=== PATIENT | male | born 1965 | race Caucasian/White ===

== ENCOUNTER 2020-07-31 13:08 | Observation (INO) | payer OTHER, SELFPAY ==
[2020-07-31] VITALS (20 sets, daily range): BP systolic 139–176; BP diastolic 77–98; PULSE 65–84; RESP 16–29; TEMP 36.5; O2SAT 96–98; BMI 35.6
--- NOTE | 2020-07-31 13:26 | DI.CT.S_ITS ---
PROCEDURE: CT HEAD/BRAIN WO CON INDICATIONS: dizziness, not TPA candidate TECHNIQUE: Noncontrast 4.5 mm thick angled axial sections acquired from the foramen magnum to the vertex, with coronal and sagittal reformats. For radiation dose reduction, the following was used: automated exposure control, adjustment of mA and/or kV according to patient size. COMPARISON: None. FINDINGS: Image quality: Excellent. CSF spaces: Basal cisterns are patent. No extra-axial fluid collections. Ventricles are normal in size and shape. Brain: No intracranial hemorrhage, mass, or mass effect. Osborn-white matter interface appears preserved. Skull and face: Calvarium and visualized facial bones are intact, without suspicious lesions. Sinuses: Visualized sinuses demonstrate mild mucosal thickening in the maxillary sinuses. IMPRESSION: 1. No acute intracranial abnormality. Dictated by: Damion Sheth M.D. on 07/31/2020 at 12:51 Approved by: Damion Sheth M.D. on 07/31/2020 at 12:52
[2020-07-31 13:40] LABS: Add Manual Diff / Slide Review NO; Basophils Absolute Auto 0 /uL (0-100); Basophils Percent Auto 0.5 % (0-2); Eosinophils Absolute Auto 0 /uL (0-450); Eosinophils Percent Auto 0.3 % (2-4); Hematocrit 47.7 % (41-53); Hemoglobin 16.3 g/dL (13.5-17.5); Lymphocytes Absolute Auto 1100 /uL (1100-4500); Mean Corpuscular HGB Conc 34.1 % (30-36); Mean Corpuscular Hemoglobin 31.1 PG (26-34); Mean Corpuscular Volume 91.1 fL (80-100); Monocytes Absolute Auto 400 /uL (0-900); Monocytes Percent Auto 4.6 % (3-14); Neutrophils Absolute Auto 7200 /uL (1500-7000); Neutrophils Percent Auto 81.6 % (50-75); Platelet Count 159 X10^3/uL (150-400); Red Blood Cell Count 5.23 X10^6/uL (4.5-5.9); Red Cell Distribution Width 13.4 % (11.6-14.8); White Blood Cell Count 8.8 X10^3/uL (4.5-11.0)
--- NOTE | 2020-07-31 13:46 | ED_ITS ---
HPI - Dizziness General Chief Complaint: Dizziness Stated Complaint: sweating,dizziness,nausea Time Seen by Provider: 07/31/20 13:10 Source: patient Mode of arrival: Wheelchair Limitations: no limitations History of Present Illness HPI Narrative: 55-year-old male nonsmoker with no significant medical history is sent here for evaluation of some midline lower back pain which is chronic and an episode of dizziness with associated nausea that happened before arrival. He states that it came on rather suddenly and does not seem to be worsened by change in position. He denies any ongoing symptoms. He denies other neurologic symptoms such as blurred vision, trouble with speech or focal weakness, numbness or tingling. He denies any recent trauma or head injury. He denies any headache. He takes no blood thinners and denies any fever, runny nose, sore throat or cough. He denies chest pain or palpitations. He does state he has had vertigo before and states it was not quite as bad as that. MD complaint: dizziness and lightheadedness Onset (ago): hour(s) Timing: sudden onset Description: lightheadedness History of similar episodes: Yes History of trauma: No Severity: moderate Relieving factors: remaining still Exacerbating factors: movement and position Associated symptoms: nausea Related Data Home Medications Medication Instructions Recorded Confirmed oxybutynin chloride 15 mg PO QAM 07/31/20 07/31/20 Allergies Allergy/AdvReac Type Severity Reaction Status Date / Time Penicillins Allergy Unknown Verified 07/31/20 13:20 Review of Systems Constitutional Constitutional: Denies chills, Denies fatigue, Denies fever(s), Denies frequent falls, Denies lethargy and Denies weakness Eyes Eyes: Denies change in vision, Denies eye discharge, Denies irritation and Denies loss of vision ENT Ears, Nose, Mouth, and Throat: Denies change in voice, Denies dizziness, Denies neck pain, Denies sore throat and Denies throat swelling Cardiovascular Cardiovascular: Denies chest pain, Denies irregular heart rhythm, Denies lightheadedness, Denies palpitations, Denies dyspnea, Denies dyspnea on exertion and Denies orthopnea Respiratory Respiratory: Denies cough, Denies dyspnea, Denies dyspnea on exertion and Denies wheezing Gastrointestinal Gastrointestinal: Denies abdominal pain, Denies change in bowel habits, Denies diarrhea, Denies nausea and Denies vomiting Musculoskeletal Musculoskeletal: Denies neck pain and Denies numbness Integumentary/Breasts Skin/Breast: Denies pruritus, Denies erythema, Denies rash and Denies wounds Neurologic Neurologic: Denies behavioral changes, Denies confusion, Denies dizziness, D enies frequent falls, Denies loss of vision, Denies numbness and Denies weakness Psychiatric Psychiatric: Denies anxiety, Denies behavioral changes, Denies confusion, Denies depression, Denies homicidal ideation and Denies suicidal ideation Endocrine Endocrine: Denies fatigue, Denies flushing and Denies palpitations Hematologic/Lymphatic Hematologic/Lymphatic: Denies easy bruising Allergic/Immunologic Allergic/Immunologic: Denies urticaria, Denies throat swelling and Denies wheezing Patient History Social History Smoking Status: Never smoker Smoking Status: Never smoker alcohol intake frequency: 0-2 drinks per day Substance Use Type: does not use Exam Narrative Exam Narrative: GENERAL: [55] year old patient appears stated age. Well- nourished, well-developed patient, in mild distress. HEAD: Atraumatic. Normocephalic. EYES: Pupils equal round and reactive. Extraocular motions intact. No scleral icterus. No injection or drainage. ENT: Nose without bleeding, purulent drainage. Throat without erythema, tonsillar hypertrophy or exudate. Airway patent. NECK: Trachea midline. Non tender CARDIOVASCULAR: Regular rate and rhythm without murmurs, gallops, or rubs. RESPIRATORY: Clear to auscultation. Breath sounds equal bilaterally. No wheezes, rales, or rhonchi. GASTROINTESTINAL: Abdomen soft, non-tender, nondistended. EXTREMITIES: No edema or joint tenderness. BACK: Nontender without deformity or crepitance. No flank tenderness. NEURO: AOx3. SKIN: No rash or erythema of visible areas Initial Vital Signs Initial Vital Signs: Vital Signs Temperature 97.7 F 07/31/20 13:17 Pulse Rate 68 07/31/20 13:17 Respiratory Rate 16 07/31/20 13:17 Blood Pressure 165/98 H 07/31/20 13:17 Scores HEART Score Heart Score history: Moderately Suspicious Heart Score EKG: Normal Heart Score Age: 45-64 years old Heart Score risk factors: > 3 risk factors or hx of atherosclerotic disease Heart Score troponin: < or = to normal limit Heart Score Total: 4 Course Course Course Narrative: orthostatics are unremarkable, no change and no dizziness. When patient walked to bathroom he felt this lightheadedness and got nauseated again Repeat EKG unremarkable. Second troponin negative. Given lack of positional quality and symptoms relation to exertion I called cardiology to discuss recommendations. He agrees that classic findings are not present but exertional tendency warrants an echo. Orders Ordered: ED Orders 07/31/20 13:26 CT head/brain wo con Stat 07/31/20 13:30 Complete Blood Count AUTO DIFF Stat Comprehensive Metabolic Panel Stat D Dimer Stat Magnesium Stat NT-proBNP (BNP-Adult 18+) Stat Troponin & CK Cardiac Panel Stat 07/31/20 15:50 Trop I [Troponin I] Stat 07/31/20 18:07 COVID19 -ED/INPAT/OR/L&D Stat Discontinued Medications Sodium Chloride (Normal Saline 0.9%) 1,000 mls @ 1,000 mls/hr IV BOLUS ONE Stop: 07/31/20 14:25 Last Infusion: 07/31/20 15:32 Dose: 0 mls/hr Documented by: Admin: 07/31/20 14:05 Dose: 1,000 mls/hr Documented by: DARREL Vital Signs Vital signs: Vital Signs - 8 hr 07/31/20 13:17 07/31/20 13:19 07/31/20 13:30 Temperature 97.7 F Pulse Rate 68 72 66 Pulse Rate [Orthostatic Lying] Pulse Rate [Orthostatic Sitting] Pulse Rate [Orthostatic Standing] Respiratory Rate 16 27 H 23 Blood Pressure 165/98 H Blood Pressure [Orthostatic Lying] Blood Pressure [Orthostatic Sitting] Blood Pressure [Orthostatic Standing] Pulse Oximetry 98 98 07/31/20 14:00 07/31/20 14:30 07/31/20 15:00 Temperature Pulse Rate 68 73 72 Pulse Rate [Orthostatic Lying] Pulse Rate [Orthostatic Sitting] Pulse Rate [Orthostatic Standing] Respiratory Rate 17 23 23 Blood Pressure Blood Pressure [Orthostatic Lying] Blood Pressure [Orthostatic Sitting] Blood Pressure [Orthostatic Standing] Pulse Oximetry 97 07/31/20 15:32 07/31/20 15:34 07/31/20 16:00 Temperature Pulse Rate 84 66 69 Pulse Rate [Orthostatic Lying] Pulse Rate [Orthostatic Sitting] Pulse Rate [Orthostatic Standing] Respiratory Rate 23 18 Blood Pressure 176/88 H 147/82 H Blood Pressure [Orthostatic Lying] Blood Pressure [Orthostatic Sitting] Blood Pressure [Orthostatic Standing] Pulse Oximetry 97 97 07/31/20 16:30 07/31/20 17:00 07/31/20 17:44 Temperature Pulse Rate 69 66 Pulse Rate [Orthostatic Lying] 66 Pulse Rate [Orthostatic Sitting] 73 Pulse Rate [Orthostatic Standing] 73 Respiratory Rate 18 23 Blood Pressure 154/81 H 151/87 H Blood Pressure [Orthostatic Lying] 155/77 H Blood Pressure [Orthostatic Sitting] 155/87 H Blood Pressure [Orthostatic Standing] 156/90 H Pulse Oximetry 97 97 MDM - Dizziness Lab Data Result diagrams: 07/31/20 13:30 07/31/20 13:30 Labs: Lab Results 07/31/20 07/31/20 07/31/20 Range/Units 13:30 13:30 13:30 WBC 8.8 (4.5-11.0) X10^3/uL RBC 5.23 (4.5-5.9) X10^6/uL Hgb 16.3 (13.5-17.5) g/dL Hct 47.7 (41-53) % MCV 91.1 (80-100) fL MCH 31.1 (26-34) PG MCHC 34.1 (30-36) % RDW 13.4 (11.6-14.8) % Plt Count 159 (150-400) X10^3/uL Neut % (Auto) 81.6 H (50-75) % Lymph % (Auto) 13.0 L (25-40) % [place] % (Auto) 4.6 (3-14) % Eos % (Auto) 0.3 L (2-4) % Baso % (Auto) 0.5 (0-2) % Neut # (Auto) 7200 H (4532-0759) /uL Lymph # (Auto) 1100 (3078-3947) /uL [place] # (Auto) 400 (0-900) /uL Eos # (Auto) 0 (0-450) /uL Baso # (Auto) 0 (0-100) /uL D-Dimer < 200 (<230) ng/mL Sodium 140 (137-145) mmol/L Potassium 3.8 (3.4-5.1) mmol/L Chloride 104 (98-107) mmol/L Carbon Dioxide 28 (22-32) mmol/L BUN 15 (9-20) mg/dL Creatinine 0.78 (0.66-1.25) mg/dL Estimated GFR > 60.0 (>60) mL/min BUN/Creatinine Ratio 19.2 (6-22) Glucose 120 H (70-100) mg/dL Calcium 9.1 (8.4-10.2) mg/dL Magnesium 1.8 (1.6-2.3) mg/dL Total Bilirubin 0.6 (0.2-1.3) mg/dL AST 42 (17-59) IU/L ALT 72 H (<50) IU/L Alkaline Phosphatase 58 (38-126) U/L Total Creatine Kinase 83 (55-170) U/L CK-MB (CK-2) TNP CK-MB (CK-2) Rel Index TNP Troponin I < 0.012 (0.01-0.034) ng/mL NT-Pro-B Natriuret Pep 33 (<125) pg/mL Total Protein 7.7 (6.3-8.2) g/dL Albumin 4.5 (3.5-5.0) g/dL Globulin 3.2 (1.7-4.1) g/dL Albumin/Globulin Ratio 1.4 (1.0-2.8) 10/10/20 Range/Units 15:50 WBC (4.5-11.0) X10^3/uL RBC (4.5-5.9) X10^6/uL Hgb (13.5-17.5) g/dL Hct (41-53) % MCV (80-100) fL MCH (26-34) PG MCHC (30-36) % RDW (11.6-14.8) % Plt Count (150-400) X10^3/uL Neut % (Auto) (50-75) % Lymph % (Auto) (25-40) % [place] % (Auto) (3-14) % Eos % (Auto) (2-4) % Baso % (Auto) (0-2) % Neut # (Auto) (6230-7405) /uL Lymph # (Auto) (0416-5425) /uL [place] # (Auto) (0-900) /uL Eos # (Auto) (0-450) /uL Baso # (Auto) (0-100) /uL D-Dimer (<230) ng/mL Sodium (137-145) mmol/L Potassium (3.4-5.1) mmol/L Chloride (98-107) mmol/L Carbon Dioxide (22-32) mmol/L BUN (9-20) mg/dL Creatinine (0.66-1.25) mg/dL Estimated GFR (>60) mL/min BUN/Creatinine Ratio (6-22) Glucose (70-100) mg/dL Calcium (8.4-10.2) mg/dL Magnesium (1.6-2.3) mg/dL Total Bilirubin (0.2-1.3) mg/dL AST (17-59) IU/L ALT (<50) IU/L Alkaline Phosphatase (38-126) U/L Total Creatine Kinase (55-170) U/L CK-MB (CK-2) CK-MB (CK-2) Rel Index Troponin I < 0.012 (0.01-0.034) ng/mL NT-Pro-B Natriuret Pep (<125) pg/mL Total Protein (6.3-8.2) g/dL Albumin (3.5-5.0) g/dL Globulin (1.7-4.1) g/dL Albumin/Globulin Ratio (1.0-2.8) Urine Dip Bedside Urine Glucose Negative Bedside Urine Bilirubin - Negative Bedside Urine Ketone - Negative Urine Specific [place] 1.010 Bedside Urine Occult Blood - Negative Bedside Urine pH 7 Bedside Urine Protein - Negative Bedside Urine Urobilinogen - Negative Bedside Urine Nitrite - Negative Bedside Urine Leukocytes - Negative Esterase Discharge Plan Departure Patient Disposition: Home Prescriptions: No Action oxybutynin chloride 15 mg tablet extended release 24hr 15 mg PO QAM RF: 0
[2020-07-31 13:52] LABS: Alanine Aminotransferase 72 IU/L (<50); Albumin 4.5 g/dL (3.5-5.0); Albumin Globulin Ratio 1.4 (1.0-2.8); Alkaline Phosphatase 58 U/L (38-126); Aspartate Aminotransferase 42 IU/L (17-59); BUN Creatinine Ratio 19.2 (6-22); Bilirubin Total 0.6 mg/dL (0.2-1.3); Blood Urea Nitrogen 15 mg/dL (9-20); Calcium 9.1 mg/dL (8.4-10.2); Carbon Dioxide 28 mmol/L (22-32); Chloride 104 mmol/L (98-107); Creatine Kinase 83 U/L (55-170); Estimated Glomerular Filt Rate > 60.0 mL/min (>60); Globulin 3.2 g/dL (1.7-4.1); Glucose 120 mg/dL (70-100); HEMOLYSIS 27 (0-50); Magnesium 1.8 mg/dL (1.6-2.3); Potassium 3.8 mmol/L (3.4-5.1); Sodium 140 mmol/L (137-145); Total Protein 7.7 g/dL (6.3-8.2)
[2020-07-31 13:55] LABS: D Dimer < 200 ng/mL (<230)
[2020-07-31 14:04] LABS: NT-proBNP (BNP-Adult 18+) 33 pg/mL (<125); Troponin I < 0.012 ng/mL (0.01-0.034)
[2020-07-31] MEDS: SODIUM CHLORIDE 0.9% 1,000 ML 1000 ML IV (14:05)
[2020-07-31 16:20] LABS: Troponin I < 0.012 ng/mL (0.01-0.034)
[2020-07-31 18:26] LABS: COVID19 -Nasal RAPID Negative (Negative)
[2020-08-01 00:22] VITALS: BP 150/84; PULSE 70; RESP 20; TEMP 36.7; O2SAT 96
--- NOTE | 2020-08-01 04:02 | P.HP_ITS ---
History of Present Illness History of Present Illness Date Patient Seen: 07/31/20 Time Patient Seen: 22:30 Chief complaint: sweating,dizziness,nausea Narrative: Mr. Sumit Valles is a 55-year-old male with a past medical history significant for BPH, obstructive sleep apnea on CPAP who was seen in the walk-in clinic and sent to the ER for further evaluation of midline lower back pain, dizziness and ataxia. 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 He self-treated with Aleve yesterday with improvement in symptoms describing pain today a 10/31. While further lived loading the ship with revisions today he developed dizziness that he describes as the boat rocking at approximately 9:00 a.m. this morning. He has had previous vertigo describes as as a very different sensation. He describes associated ataxia and reports that his legs were 1 weak likely would feel after a long run. He additionally described blurry vision mild nausea and difficulty thinking clearly. His symptoms all but resolved by the time he presented to the hospital for evaluation. He denies any complaints of recent i llness with no fevers or chills, nasal congestion or sore throat. He denies chest pain or palpitations, shortness of breath cough or wheezing. He has sleep apnea and uses CPAP nightly. He has had no abdominal pain and denies nausea or vomiting and has had no changes in appetite and reports drinking adequate fluids. He denies constipation or diarrhea does have enlarged prostate for which he takes oxybutynin. He previously had frequent nocturia that has resolved with use of CPAP. Patient denies radicular pain weakness or numbness or tingling in his legs. He is typically fully independent in ADLs uses no assistive devices. Upon arrival to the ER he is afebrile with temperature 97.7?, heart rate 68, blood pressure 165/98, respirations 16 and saturating 98% on room air. A CT of the head finds no acute intracranial pathology. On laboratory analysis has white count of 8.8, hemoglobin 16.3, hematocrit of 47.7 platelets 159. His electrolytes within normal ranges and has a BUN of 15 and creatinine 0.78. His magnesium is 1.8 his liver functions are all within normal range. He has a D- dimer of less than 200, total CK of 83, troponin of 0.012 x 2 and a proBNP of 33. His 12 lead EA she shows a sinus rhythm with a ventricular rate of 66 without ectopy, ST or T-wave changes. In the ER the patient received 1 L of normal saline. The patient was ambulated to the bathroom or upon his symptoms reoccurred. Dr. Hickman cardiology was consulted. He is admitted to the medicine service persistent weakness and dizziness. Patient History Medical History (Updated 08/01/20 @ 04:18 by KIRSTY Thompson) BPH (benign prostatic hyperplasia) (Acute) Obesity (BMI 30-39.9) (Acute) Obstructive sleep apnea on CPAP (Acute) Surgical History (Updated 08/01/20 @ 04:19 by KIRSTY Thompson) History of appendectomy (Acute) Family & Social History Family History (Updated 08/01/20 @ 04:20 by KIRSTY Thompson) Father Brain tumor Mother Post-polio syndrome Brother Pituitary tumor Brother No significant medical problems Social History: household members significant other Prior Living Arrangements House Safety & Behavioral: Feels Safe in Current Yes Environment Been Physically Hurt or No Threatened By a Person Suicidal Ideation Description None Suicide Plan Description No Plan Tobacco & Substance use: Smoking Status Never smoker alcohol intake current alcohol intake frequency 0-2 drinks per day Substance Use Type does not use Meds Home Medications and Allergies Home Medications Medication Instructions Recorded Confirmed Type oxybutynin chloride 15 mg PO QAM 07/31/20 07/31/20 History Allergies Allergy/AdvReac Type Severity Reaction Status Date / Time Penicillins Allergy Unknown Verified 07/31/20 13:20 garlic Allergy Diarrhea Verified 07/31/20 20:48 Review of Systems Review of Systems ROS: Yes All systems reviewed with the patient and are negative except as otherwise documented Exam Vital Signs (past 8 hours): - 07/31/20 21:22 08/01/20 00:22 Temperature 98.1 F Pulse Rate 67 70 Respiratory Rate 18 20 Blood Pressure 150/84 H Pulse Oximetry 98 96 Oxygen Delivery Method Room Air Oxygen Flow Rate 0 Narrative Exam Narrative: GENERAL APPEARANCE: well developed, obese male with BMI 35.6, resting comfortably in bed in no acute distress. HEENT: Normocephalic, PERRLA, conjunctiva clear and anicteric, EOMs intact without nystagmus, no sinus tenderness to percussion, no rhinorrhea, mucous membranes are moist and pink without lesions or exudate. NECK/THYROID: neck supple, nontender, no JVD, no carotid bruit, no thyromegaly, trachea midline. LYMPH NODES: no cervical or supraclavicular lymphadenopathy. SKIN: [place], warm and dry, no visible lesions, rashes. HEART: regular rate and rhythm, S1-S2, no murmur, no rubs or gallops, brisk capillary refill, no edema LUNGS: clear to auscultation bilaterally, no coarseness crackles or wheezing, no cough present CHEST: Symmetrical movement, no accessory muscle use, good tidal volume. ABDOMEN: Soft, round, dull to percussion, no distention, no abdominal tenderness, no guarding or peritoneal signs, no organomegaly, no flank or suprapubic tenderness, active bowel tones. BACK: Normal curvature, nontender to palpation, no CVA tenderness on percussion EXTREMITIES: moves all extremities, strength is 5/5 and symmetrical, no def ormities or joint effusions. NEUROLOGIC: AAO x4, cranial nerves II-XII grossly intact, sensation intact to light touch, hearing grossly normal to speech. PSYCH: Good judgment, linear thought process, cooperative, appropriate with stable behavior Objective Labs Result Diagrams: 07/31/20 13:30 07/31/20 13:30 Labs: Laboratory Results - last 24 hr 07/31/20 07/31/20 07/31/20 13:30 13:30 13:30 WBC 8.8 RBC 5.23 Hgb 16.3 Hct 47.7 MCV 91.1 MCH 31.1 MCHC 34.1 RDW 13.4 Plt Count 159 Neut % (Auto) 81.6 H Lymph % (Auto) 13.0 L [place] % (Auto) 4.6 Eos % (Auto) 0.3 L Baso % (Auto) 0.5 Neut # (Auto) 7200 H Lymph # (Auto) 1100 [place] # (Auto) 400 Eos # (Auto) 0 Baso # (Auto) 0 D-Dimer < 200 Sodium 140 Potassium 3.8 Chloride 104 Carbon Dioxide 28 BUN 15 Creatinine 0.78 Estimated GFR > 60.0 BUN/Creatinine Ratio 19.2 Glucose 120 H Calcium 9.1 Magnesium 1.8 Total Bilirubin 0.6 AST 42 ALT 72 H Alkaline Phosphatase 58 Total Creatine Kinase 83 CK-MB (CK-2) TNP CK-MB (CK-2) Rel Index TNP Troponin I < 0.012 NT-Pro-B Natriuret Pep 33 Total Protein 7.7 Albumin 4.5 Globulin 3.2 Albumin/Globulin Ratio 1.4 COVID-19 PCR 07/31/20 07/31/20 15:50 18:00 WBC RBC Hgb Hct MCV MCH MCHC RDW Plt Count Neut % (Auto) Lymph % (Auto) [place] % (Auto) Eos % (Auto) Baso % (Auto) Neut # (Auto) Lymph # (Auto) [place] # (Auto) Eos # (Auto) Baso # (Auto) D-Dimer Sodium Potassium Chloride Carbon Dioxide BUN Creatinine Estimated GFR BUN/Creatinine Ratio Glucose Calcium Magnesium Total Bilirubin AST ALT Alkaline Phosphatase Total Creatine Kinase CK-MB (CK-2) CK-MB (CK-2) Rel Index Troponin I < 0.012 NT-Pro-B Natriuret Pep Total Protein Albumin Globulin Albumin/Globulin Ratio COVID-19 PCR Negative Assessment & Plan Assessment & Plan narrative: This is a 55-year-old male patient who developed mid back pain 1 day ago self-treated with Aleve with improvement and 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 1. Dizziness, acute, present on admission, active -patient with history of vertigo describes this is very different with associated symptoms of mild nausea extremity weakness/fatigue, no complaints of headache, chest pain or shortness of breath, no recent illness. -patient had troponins that were negative x2 an EKG shows a normal sinus rhythm without ST T wave changes and no ectopy. Head CT finds no acute intracranial pathology, no evidence of infection or evidence of dehydration. -in the ER the patient received 1 L of fluids, negative orthostatics, patient is saline lock. -patient is taking oral fluids without nausea, ordered heart healthy diet. -ordered echocardiogram in the morning. -ordered MR stroke protocol in the morning 2. BPH without lower urinary tract obstruction, chronic, stable -Continue patient's home regimen of oxybutynin 15 mg daily 3. Obstructive sleep apnea -respiratory therapy to consult patient may use own CPAP machine. VTE prophylaxis: Bilateral SCDs, chemical prophylaxis not indicated IV fluid: Saline lock Diet: Heart healthy Code status: Full code, patient has no surrogate decision maker but states he does not want to have long-term life support. The patient is admitted to the hospital for further monitoring and evaluation due to the severity of symptoms and the risk for potential complications and adverse events. The patient is admitted as observation with expected length of stay to be less than 2 midnights. COVID-19 COVID-19 status: Negative Result date/Date tested (Pos, Neg/Pending): 07/31/20 Scores GCS [place] coma scale eye opening: Spontaneous [place] coma scale verbal response: Orientated [place] coma scale motor response: Obey commands [place] coma scale total score: 15
[2020-08-01 05:35] VITALS: BP 121/72; BP 137/79; BP 145/90; PULSE 70; PULSE 71; PULSE 80
[2020-08-01 05:40] LABS: BUN Creatinine Ratio 19.3 (6-22); Blood Urea Nitrogen 17 mg/dL (9-20); Carbon Dioxide 30 mmol/L (22-32); Chloride 105 mmol/L (98-107); Estimated Glomerular Filt Rate > 60.0 mL/min (>60); Glucose 109 mg/dL (70-100); HEMOLYSIS 16 (0-50); Potassium 3.7 mmol/L (3.4-5.1); Sodium 138 mmol/L (137-145)
[2020-08-01 08:51] VITALS: PULSE 68; RESP 18; O2SAT 98
[2020-08-01 09:37] VITALS: BP 131/76; BP 137/79; BP 143/78; PULSE 73; PULSE 76; PULSE 77; PULSE 84; RESP 15; TEMP 36.8; O2SAT 95
[2020-08-01] MEDS: INFLUENZA VACCINE 0.5 ML SYRINGE IM (10:18)
[2020-08-01] MEDS: OXYBUTYNIN 5 MG ER TAB 15 MG PO (10:18)
[2020-08-01] MEDS: SODIUM CHLORIDE 0.9% FLUSH 10 ML IV (10:20)
--- NOTE | 2020-08-01 11:30 | P.DS_ITS ---
History of Present Illness History of Present Illness Date Patient Seen: 08/01/20 Chief complaint: sweating,dizziness,nausea Narrative: Mr. Sumit Valles is a 55-year-old male with a past medical history significant for BPH, obstructive sleep apnea on CPAP who was seen in the walk-in clinic and sent to the ER for further evaluation of midline lower back pain, dizziness and ataxia. 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 He self-treated with Aleve yesterday with improvement in symptoms describing pain today a 10/31. While further lived loading the ship with revisions today he developed dizziness that he describes as the boat rocking at approximately 9:00 a.m. this morning. He has had previous vertigo describes as as a very different sensation. He describes associated ataxia and reports that his legs were 1 weak likely would feel after a long run. He additionally described blurry vision mild nausea and difficulty thinking clearly. His symptoms all but resolved by the time he presented to the hospital for evaluation. He denies any complaints of recent illness with no fevers or chills, nasal congestion or sore throat. He denies chest pain or palpitations, shortness of breath cough or wheezing. He has sleep apnea and uses CPAP nightly. He has had no abdominal pain and denies nausea or vomiting and has had no changes in appetite and reports drinking adequate fluids. He denies constipation or diarrhea does have enlarged prostate for which he takes oxybutynin. He previously had frequent nocturia that has resolved with use of CPAP. Patient denies radicular pain weakness or numbness or tingling in his legs. He is typically fully independent in ADLs uses no assistive devices. Upon arrival to the ER he is afebrile with temperature 97.7?, heart rate 68, blood pressure 165/98, respirations 16 and saturating 98% on room air. A CT of the head finds no acute intracranial pathology. On laboratory analysis has white count of 8.8, hemoglobin 16.3, hematocrit of 47.7 platelets 159. His elect rolytes within normal ranges and has a BUN of 15 and creatinine 0.78. His magnesium is 1.8 his liver functions are all within normal range. He has a D- dimer of less than 200, total CK of 83, troponin of 0.012 x 2 and a proBNP of 33. His 12 lead EA she shows a sinus rhythm with a ventricular rate of 66 without ectopy, ST or T-wave changes. In the ER the patient received 1 L of normal saline. The patient was ambulated to the bathroom or upon his symptoms reoccurred. Dr. Hickman cardiology was consulted. He is admitted to the medicine service persistent weakness and dizziness. Discharge Providers Provider Date of admission: 07/31/20 18:28 Discharge Date: 08/01/20 Consults: 07/31/20 20:06 Consult to Discharge Planning Routine Comment: Consult to Physical Therapy Evaluate & Treat Comment: Vertigo, exertional weakness Physician Instructions: Evaluate and Treat 08/01/20 04:32 Consult to Respiratory Therapy Evaluate & Treat Comment: CPAP Physician Instructions: Evaluate and treat Discharge provider: Sommer Jones MD Summary Hospital Course Discharge Diagnosis: 1. Vertigo 2. Obstructive sleep apnea 3. Obesity 4. Back pain Hospital Course: Patient was admitted to the hospital for evaluation of dizziness, ataxia and back pain. The patient underwent orthostatic vital signs which show no evidence of orthostatic changes. The patient reports his vertigo improved. He had no back pain. He was evaluated by physical therapy and had no evidence of ataxia. The patient's head CT was negative. He had no chest pain. He had no shortness of breath. While he reports this episode of vertigo seems different from prior his main complaint was dizziness which has completely resolved. Patient was deemed appropriate for discharge and arrangements were made for him to be discharged home. Status at Discharge Cognitive/behavioral status at discharge: oriented Functional status at discharge: independent ambulation Overall status at discharge: patient is back to baseline Time Spent with Patient Time spent: Less than 30 minutes Exam Vital Signs (past 8 hours): - 08/01/20 05:35 08/01/20 08:51 08/01/20 09:37 Temperature 98.3 F Pulse Rate 68 76 Pulse Rate [Orthostatic Lying] 71 77 Pulse Rate [Orthostatic Sitting] 70 73 Pulse Rate [Orthostatic Standing] 80 84 Respiratory Rate 18 15 Blood Pressure 143/78 H Blood Pressure [Orthostatic Lying] 145/90 H 143/78 H Blood Pressure [Orthostatic Sitting] 137/79 137/79 Blood Pressure [Orthostatic Standing] 121/72 131/76 Pulse Oximetry 98 95 Oxygen Delivery Method Room Air Oxygen Flow Rate 0 Narrative Exam Narrative: Pleasant male in no acute distress Lungs: Clear to auscultation Cardiac exam: Regular rate and rhythm normal S1-S2 Abdomen: Soft nontender nondistended Extremities: No edema Objective Labs Result Diagrams: 07/31/20 13:30 08/01/20 04:50 Labs: Laboratory Results - last 24 hr 07/31/20 07/31/20 07/31/20 13:30 13:30 13:30 WBC 8.8 RBC 5.23 Hgb 16.3 Hct 47.7 MCV 91.1 MCH 31.1 MCHC 34.1 RDW 13.4 Plt Count 159 Neut % (Auto) 81.6 H Lymph % (Auto) 13.0 L [place] % (Auto) 4.6 Eos % (Auto) 0.3 L Baso % (Auto) 0.5 Neut # (Auto) 7200 H Lymph # (Auto) 1100 [place] # (Auto) 400 Eos # (Auto) 0 Baso # (Auto) 0 D-Dimer < 200 Sodium 140 Potassium 3.8 Chloride 104 Carbon Dioxide 28 BUN 15 Creatinine 0.78 Estimated GFR > 60.0 BUN/Creatinine Ratio 19.2 Glucose 120 H Calcium 9.1 Magnesium 1.8 Total Bilirubin 0.6 AST 42 ALT 72 H Alkaline Phosphatase 58 Total Creatine Kinase 83 CK-MB (CK-2) TNP CK-MB (CK-2) Rel Index TNP Troponin I < 0.012 NT-Pro-B Natriuret Pep 33 Total Protein 7.7 Albumin 4.5 Globulin 3.2 Albumin/Globulin Ratio 1.4 COVID-19 PCR 07/31/20 07/31/20 08/01/20 15:50 18:00 04:50 WBC RBC Hgb Hct MCV MCH MCHC RDW Plt Count Neut % (Auto) Lymph % (Auto) [place] % (Auto) Eos % (Auto) Baso % (Auto) Neut # (Auto) Lymph # (Auto) [place] # (Auto) Eos # (Auto) Baso # (Auto) D-Dimer Sodium 138 Potassium 3.7 Chloride 105 Carbon Dioxide 30 BUN 17 Creatinine 0.88 Estimated GFR > 60.0 BUN/Creatinine Ratio 19.3 Glucose 109 H Calcium 9.0 Magnesium Total Bilirubin AST ALT Alkaline Phosphatase Total Creatine Kinase CK-MB (CK-2) CK-MB (CK-2) Rel Index Troponin I < 0.012 NT-Pro-B Natriuret Pep Total Protein Albumin Globulin Albumin/Globulin Ratio COVID-19 PCR Negative Discharge Assessment & Plan Assessment and Plan Assessment: 1. Vertigo, resolved 2. Obstructive sleep apnea 3. Obesity Plan of Treatment: Discharge Meclizine as needed for vertigo Discharge Plan Discharge Plan Discharge Problem: Atypical chest pain Patient Disposition: Home Discharge orders & Medications Prescriptions: New meclizine 25 mg tablet,chewable 25 mg PO TID PRN (Reason: dizziness) Qty: 30 RF: 0 Continued oxybutynin chloride 15 mg tablet extended release 24hr 15 mg PO QAM RF: 0 Diet/Activity/Treatments Diet: Low-sodium Activity: as tolerated Discharge Data Attending Provider: Sommer Jones Admit Date/Time: 07/31/20 18:28
--- NOTE | 2020-08-01 11:40 | PT.IIE ---
Surgical History (Last Updated 08/01/20 @ 04:19 by KIRSTY Thompson) History of appendectomy (Acute) Medical History (Last Updated 08/01/20 @ 04:18 by KIRSTY Thompson) BPH (benign prostatic hyperplasia) (Acute) Obesity (BMI 30-39.9) (Acute) Obstructive sleep apnea on CPAP (Acute) Physical Therapy Inpatient Evaluation/Re-Eval M1 PT/OT-IP Prior Functional Status Start: 08/01/20 10:08 Freq: NEEDED Status: Active Protocol: Document 08/01/20 11:35 AW (Rec: 08/01/20 12:17 AW [id number]) Medical Review Prior Functional Status Medical History Reviewed Yes: PMH includes BPPV, BPH, TENZIN Communication WNL. No known deficits. Mobility and Gait Pt is right handed. 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 M2 PT-IP Current Condition Start: 08/01/20 10:08 Freq: NEEDED Status: Active Protocol: Document 08/01/20 11:35 AW (Rec: 08/01/20 12:17 AW [id number]) Physical Therapy Current Condition Current Condition Evaluation Date 08/01/20 Treatment Diagnosis possible TIA, difficulty in walking Onset Date 07/30/20 M3 PT-IP Subjective Start: 08/01/20 10:08 Freq: NEEDED Status: Active Protocol: Document 08/01/20 11:35 AW (Rec: 08/01/20 12:17 AW [id number]) Subjective Physical Therapy Visit Type Type Initial Evaluation Visit Start Time 11:11 Visit Stop Time 11:33 Total Visit Minutes 22 Number of MODERATE NEEDS TEACHER Visits 0 Physical Therapy Visit Comments Patient Comments Pt is willing to participate with PT Patient Goals Return to work Therapy Pain Assessment Pain When Pain Assessed During Mobility Pain Present Pain Present Pain Reported Location Back Scale Used not quantified Pain Management Techniques Distraction,Re-positioning M4 PT-IP Mobility and Gait Start: 08/01/20 10:08 Freq: NEEDED Status: Active Protocol: Document 08/01/20 11:35 AW (Rec: 08/01/20 12:17 AW [id number]) PT-Bed Mobility Assessment Supine to Sit Supine to Sit Independent Scooting Scooting to Edge of Bed Independent PT-Transfer Assessment Sit to and From Stand Sit to and from Stand Independent Equipment Transfer Assistive Device None,Gait Belt Orthotic/Prosthetic Devices or Brace: No Transfers Transfer Destination Chair Transfer Technique pt ambulated IND Transfer Ability Level of Assist Independent Comments Mobility Comments Pt was lying in the bed when PT arrived. He completed all bed mobility, transfers, and gait without assist and denied dizziness throughout the evaluation. He completed 4- item DGI in the halls with a score of 12/12. Pt returned to the room and transferred to the chair where he was left with call light and all needs within reach. Gait Assessment Gait Gait Assistance Required: Independent Distance (Feet) 300 Assistive Devices Assistive Device None,Gait Belt Orthotic/Prosthetic Devices or Brace: No Gait Deviations General Gait Pattern Within Normal Limits,Wide Based Gait Comments Gait Comments See mobility comments for details. Stair Climbing Assessment Evaluation Level of Assist On Stairs Independent Devices Stair Climbing Assistive Devices None Technique/Endurance Stair Climbing Direction Ascend and Descend Stair Climbing Technique Step Over Step Number of Steps Climbed 3 Query Text: Stair Climbing Set # Repetitions (reps) 2 PT-Balance Assessment Sitting Balance and Reactions Static Sitting Balance Ability Normal Dynamic Sitting Balance Ability Normal Standing Balance and Reactions Static Standing Balance Ability Normal Dynamic Standing Balance Ability Normal Balance Tests Romberg WNL EO and EC Tandem Standing Normal Functional Assessments Functional Tests Dynamic Gait Index 4-item DGI: /12 M5 PT-IP Objective Assessments Start: 08/01/20 10:08 Freq: NEEDED Status: Active Protocol: Document 08/01/20 11:35 AW (Rec: 08/01/20 12:17 AW [id number]) Orientation Orientation/Cognition Level of Alertness Alert Orientation Name,Day of Week,Place, Situation Language Function Ability No Deficits Noted Safety Awareness Understands Safety Issues Memory Description No Deficits Noted Gross Range of Motion Upper Extremity ROM Assessment Within Functional Limits Lower Extremity ROM Assessment Within Functional Limits Strength Upper Extremity Strength Assessment Within Functional Limits Lower Extremity Strength Assessment Within Functional Limits Comments Strength Comments No unilateral deficits noted on exam. Coordination Assessment Gross Coordination Gross Coordination WNL Assessment Finger to Nose Test Normal Performance Foot Tapping Test Normal Performance Sensation Assessment Sensation Gross Sensation WNL Comments Sensation Comments Pt denied any sensation disturbance. Muscle Tone Muscle Tone WNL Yes Comments Muscle Tone Comments Negative ankle clonus bilaterally Other Assessments Other Other Assessments No resting or gaze-evoked nystagmus on exam. Occulomotor exam grossly normal. VOR intact on head thrust testing. M6 PT-IP Treatment Start: 08/01/20 10:08 Freq: NEEDED Status: Active Protocol: Document 08/01/20 11:35 AW (Rec: 08/01/20 12:17 AW [id number]) Physical Therapy Treatment Education Education Provided Safety Other Treatments Other Treatment Performed Reviewed signs and symptoms of stroke with pt able to teach back. M7 PT-IP Assessment and Plan Start: 08/01/20 10:08 Freq: NEEDED Status: Active Protocol: Document 08/01/20 11:35 AW (Rec: 08/01/20 12:17 AW [id number]) PT Summary Assessment and Plan Potential Status of Condition at Evaluation Stable Summary Impairments Pain Assessment Summary Sumit is a 55 yo man seen for PT evaluation after being admitted with midline/right- sided low back pain, dizziness lasting <2 hours, blurred vision, and nausea. Pt has history of BPPV and clearly states these symptoms were distinct from an episode of BPPV. 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 On exam, pt's symptoms had resolved other than mild low back pain and he required no assist for all mobility. He scored 12/12 on 4-item DGI and therefore requires no further balance assessment. PT identifies no acute or subacute needs. Pt is safe to discharge once medically cleared. Frequency of Treatment Frequency Of Treatment Discharge Recommendations To Nursing Amount of Assist Needed Independent Discharge Recommendations PT Discharge Recommendations Home Transportation Needs at Discharge Private Vehicle
--- NOTE | 2020-08-01 16:01 | PC.NURSE ---
Discharge: Feels ready to d/c home. Reviewed d/c instructions. Employer called numerous times today. Spoke with noc nurse Jenni RN, Daya [employer] x2, this radio script writer x1, and Dr. Jones x2. Information exchanged with pt written permission. Pt questions answered. Pt d/c home via auto.
== END 2020-08-01 13:45 | disposition home or self-care (01) ==
LOC: ED 18:25 → AC 18:29
PROVIDERS: Nurse Practitioner Adult Health; Admitting Provider Internal Medicine; Emergency Provider Emergency Medicine; Referring Provider Emergency Medicine; Visit Provider Internal Medicine
DX: M54.5 Low back pain (principal); R42 Dizziness and giddiness; R11.0 Nausea; E66.9 Obesity, unspecified; G47.33 Obstructive sleep apnea (adult) (pediatric); N40.0 Benign prostatic hyperplasia without lower urinary tract symptoms; Z68.35 Body mass index [BMI] 35.0-35.9, adult; Z11.59 Encounter for screening for other viral diseases
CPT/HCPCS: 36415; 70450; 80048; 80053; 81003; 82550; 83735; 83880; 84484; 85025; 85379; 87635; 90471; 90656; 93005; 94660; 94760; 94762; 96360; 97161; 99284; G0378; Q2038